=== PATIENT | male | born 2000 | race African-American/Black ===

== ENCOUNTER 2021-02-06 21:04 | Emergency (ER) | payer OTHER ==
[2021-02-06 21:21] VITALS: BP 133/68; PULSE 75; TEMP 98; BMI 25.7
[2021-02-06] MEDS ORDERED: FAMOTIDINE 20 MG TABLET PO ONE (22:00)
[2021-02-06] MEDS ORDERED: DEXAMETHASONE SOD PHOSPHATE 10 MG/1 ML VIAL IM ONE (22:00)
[2021-02-06] MEDS ORDERED: DEXAMETHASONE SOD PHOSPHATE 10 MG/1 ML VIAL ONE (22:06)
[2021-02-06] MEDS ORDERED: FAMOTIDINE 20 MG TABLET ONE (22:06)
== END 2021-02-06 22:55 | disposition home or self-care (01) ==
LOC: JERFT 21:04
PROC: 3E023GC Introduction of Other Therapeutic Substance into Muscle, Percutaneous Approach (ICD-10-PCS; principal; 2021-02-06)
DX: L23.9 Allergic contact dermatitis, unspecified cause (principal)
CPT/HCPCS: 99284-25; J1100

== ENCOUNTER 2021-11-05 08:23 | Emergency (ER) | payer OTHER ==
[2021-11-05 08:40] VITALS: BP 122/69; PULSE 68; TEMP 97.9; BMI 50.7
== END 2021-11-05 10:03 | disposition home or self-care (01) ==
LOC: JER 08:23 → JERFT 08:23
DX: L23.7 Allergic contact dermatitis due to plants, except food (principal)
CPT/HCPCS: 73610-TC-RT-FY; 99284-25